=== PATIENT | female | born 1985 | race Caucasian/White ===

== ENCOUNTER 2021-04-06 10:27 | Emergency (ER) | payer BC, OTHER ==
[2021-04-06] MEDS ORDERED: Sodium Chloride 0.9% 1,000 ML IV ONE (10:36)
[2021-04-06] MEDS ORDERED: Ketorolac 30 MG/ML SDV IVPUSH ONE (10:36)
--- NOTE | 2021-04-06 10:36 | EDM.PDOC ---
ED HPI GENERAL MEDICAL PROBLEM - General Chief Complaint: Respiratory Problem Stated Complaint: SOB Time Seen by Provider: 04/06/21 10:28 Source of Information: Reports: Patient History Limitations: Reports: No Limitations - History of Present Illness INITIAL COMMENTS - FREE TEXT/NARRATIVE: HISTORY AND PHYSICAL: History of present illness: Patient is a 35-year-old female who presents to the emergency room with complaints of shortness of breath, subjective fever, cough and worsening body aches over the past 2 to 3 days. Patient started having symptoms on 03/30/2021, was diagnosed with COVID-19 on 04/01. She states her symptoms are progressively getting worse and she feels like it is "moving into my lungs". She has had mild nausea, headache and diarrhea. Patient denies any change in vision, syncope or near syncope. Denies any chest pain, back pain, abdominal pain, vomiting, constipation or dysuria. Has not noted any blood in urine or stool. No concern for . Patient has been eating and drinking appropriately. Review of systems: As per history of present illness and below otherwise all systems reviewed and negative. Past medical history: As per history of present illness and as reviewed below otherwise noncontributory. Surgical history: As per history of present illness and as reviewed below otherwise noncontributory. Social history: See social history for further information Family history: As per history of present illness and as reviewed below otherwise noncontributory. Physical exam: General: Well developed and well nourished . Alert and orientated x 3. Nontoxic in appearance and in no acute distress. Vital signs are stable and have been reviewed by me. Nursing notes were reviewed. HEENT: Atraumatic, normocephalic, pupils equal and reactive bilaterally, negative for conjunctival pallor or scleral icterus, mucous membranes dry, TMs normal bilaterally, throat clear, neck supple, nontender, trachea midline. No drooling or trismus noted. No meningeal signs. No hot potato voice noted. Lungs: Diminished to auscultation bilaterally. No wheezes, rales, or rhonchi. Chest nontender. Normal work of breathing, no accessory muscles used. Heart: S1S2, regular rate and rhythm without overt murmur, gallops, or rubs. No JVD. No peripheral edema Abdomen: Soft, nondistended, nontender. Normoactive bowel sounds. Negative for masses or costovertebral tenderness. Skin: Intact, warm, dry. No lesions or rashes noted. Hematologic: No petechiae or purpra. Mucosa appropriate color and normal nail bed color and refill. Extremities: Atraumatic, moves all extremities per self without difficulty or deficits, negative for cords or calf pain. Neurovascular unremarkable. Neuro: Awake, alert, oriented. Cranial nerves II through XII unremarkable. Cerebellum unremarkable. Motor and sensory unremarkable throughout. Exam nonfocal. Psychiatric: Mood and affect are appropriate. Normal thought process. Answering questions appropriately. Please note that the patient was seen and evaluated during the 2019 SARS-CoV-2 novel coronavirus pandemic period. Community viral transmission is ongoing at time of this encounter and the emergency department is operating under pandemic response procedures. Medical Decision Making: Patient is a 35-year-old female who presents to the emergency room with complaints of increased worsening of COVID-19 symptoms. She states over the past 2 days they have been significantly more difficult and she feels like it is "moving it into my lungs". She does have some concern of dehydration as she has had diarrhea. Her oral mucosa are dry and she does have diminished lung sounds. We will do basic lab work and give her some fluid replacement with Toradol. Declines wanting anything for nausea at this time. Vital signs are stable with a saturation of 92% on room air. Chest x-ray shows low lung volumes bilaterally expanded to the 78th posterior rib space. Given low lung volumes, cardiomediastinal silhouette is likely within normal limits. Vascular crowding likely secondary to low lung volumes. There are multifocal pulmonary opacities bilaterally with peribronchial thickening consistent with underlying diagnosis of COVID. No large effusion. No pneumothorax. Nursing staff had noticed that her oxygen would go to 89 to 90% on room air. They had put her on 2 L per nasal cannula and she had bumped up to 96 to 98%with supplementation. We did remove her from oxygen when deciding admission versus discharge to home, she would sat 90 to 94%. I did offer and admission, she would prefer to go home with home oxygen. [employer] did come and provide patient with oxygen supplies. She will be given the option for outpatient monoclonal antibody therapy. I have talked with the patient about today's findings, in addition to providing specific details for plan of care. Reassessment at the time of disposition demonstrates that the patient is in no acute distress. The patient is stable for discharge, counseling was provided and we discussed in great detail signs and symptoms that would prompt them to return to the Emergency Department. Medication, follow up and supportive care measures were reviewed and discussed. Voices understanding and is agreeable to plan of care. Denies any further questions or concerns at this time. Diagnostics: CBC, CMP, CXR Therapeutics: IV fluids, Toradol Prescription: Home oxygen, outpatient monoclonal antibody therapy Impression: COVID-19 Plan: 1. Your COVID-19 screening is positive. That means you do have the coronavirus and you are considered contagious. Your vital signs and oxygen saturation are well enough that you were able to monitor your symptoms at home. Continue to monitor for trouble breathing, new confusion or inability to arouse, bluish lips or face or any of the other symptoms we discussed -if this occurs please return to the emergency room immediately. 2. Please self quarantine until cleared by [facility]. Inform any persons that you have been in contact with since you started becoming symptomatic that you have tested positive; they should be made aware and take the appropriate steps as needed. 3. You can take NyQuil during the evening to help get a restful night sleep. May alternate Tylenol and ibuprofen as needed for pain and fever management. 4. The [facility] department will be calling you and following up with you. The [facility] COVID 19 Hotline phone number , They are open Sunday - Sunday 7am - 7pm. Follow up with your primary care provider for re-evaluation as directed. Definitive disposition and diagnosis as appropriate pending reevaluation and review of above. - Related Data Allergies Allergy/AdvReac Type Severity Reaction Status Date / Time No Known Allergies Allergy Verified 04/06/21 10:39 Home Meds: Home Meds Codeine/Promethazine [Phenergan with Codeine] 5 ml PO Q4HR PRN #118 ml 04/06/21 [Rx] Venlafaxine [Venlafaxine HCl ER] 225 mg PO DAILY 04/06/21 [History] ED ROS GENERAL - Review of Systems Review Of Systems: Comprehensive ROS is negative, except as noted in HPI. ED EXAM, GENERAL - Physical Exam Exam: See Below (See dictation) Course - Vital Signs Last Recorded V/S: Last Vital Signs Temp 96.5 F L 04/06/21 10:31 Pulse 102 H 04/06/21 11:35 Resp 17 04/06/21 11:35 BP 142/82 H 04/06/21 11:35 Pulse Ox 96 04/06/21 11:35 - Orders/Labs/Meds Labs: Laboratory Tests 04/06/21 04/06/21 04/06/21 Range/Units 10:51 10:51 11:19 WBC 4.92 (4.0-11.0) K/uL RBC 4.67 (4.30-5.90) M/uL Hgb 12.7 (12.0-16.0) g/dL Hct 38.6 (36.0-46.0) % MCV 82.7 (80.0-98.0) fL MCH 27.2 (27.0-32.0) pg MCHC 32.9 (31.0-37.0) g/dL RDW Std Deviation 41.6 (28.0-62.0) fl RDW Coeff of Juanjo 14 (11.0-15.0) % Plt Count 215 (150-400) K/uL MPV 10.70 (7.40-12.00) fL Neut % (Auto) 74.2 (48.0-80.0) % Lymph % (Auto) 21.1 (16.0-40.0) % [place] % (Auto) 4.3 (0.0-15.0) % Eos % (Auto) 0.2 (0.0-7.0) % Baso % (Auto) 0.2 (0.0-1.5) % Neut # (Auto) 3.7 (1.4-5.7) K/uL Lymph # (Auto) 1.0 (0.6-2.4) K/uL [place] # (Auto) 0.2 (0.0-0.8) K/uL Eos # (Auto) 0.0 (0.0-0.7) K/uL Baso # (Auto) 0.0 (0.0-0.1) K/uL Nucleated RBC % 0.0 /100WBC Nucleated RBCs # 0 K/uL Sodium 134 L (136-145) mmol/L Potassium 3.6 (3.5-5.1) mmol/L Chloride 97 L (98-107) mmol/L Carbon Dioxide 25.8 (21.0-32.0) mmol/L BUN 9 (7.0-18.0) mg/dL Creatinine 0.7 (0.6-1.0) mg/dL Est Cr Clr Drug Dosing 116.11 mL/min Estimated GFR (MDRD) > 60.0 ml/min Glucose 190 H (74-106) mg/dL Calcium 8.0 L (8.5-10.1) mg/dL Total Bilirubin 1.0 (0.2-1.0) mg/dL AST 43 H (15-37) IU/L ALT 78 H (14-63) IU/L Alkaline Phosphatase 70 (46-116) U/L Total Protein 8.0 (6.4-8.2) g/dL Albumin 3.3 L (3.4-5.0) g/dL Globulin 4.7 H (2.6-4.0) g/dL Albumin/Globulin Ratio 0.7 L (0.9-1.6) SARS-CoV-2 RNA ([place]) POSITIVE H (NEGATIVE) Meds: Medications Discontinued Medications Generic Name Dose Route Start Last Admin Trade Name Freq PRN Reason Stop Dose Admin Dexamethasone 6 mg 04/06/21 11:24 04/06/21 12:09 Dexamethasone 10 Mg/Ml Sdv IVPUSH 04/06/21 11:25 6 mg ONETIME ONE Administration Sodium Chloride 1,000 mls @ 999 mls/hr 04/06/21 10:36 04/06/21 11:02 Normal Saline IV 04/06/21 11:36 999 mls/hr STAT ONE Administration Ketorolac Tromethamine 30 mg 04/06/21 10:36 04/06/21 11:02 Ketorolac 30 Mg/Ml Sdv IVPUSH 04/06/21 10:37 30 mg ONETIME ONE Administration Departure - Departure Time of Disposition: 14:05 Disposition: Home, Self-Care 01 Clinical Impression: COVID-19 - Discharge Information Prescriptions: Codeine/Promethazine [Phenergan with Codeine] 5 ml PO Q4HR PRN #118 ml PRN Reason: Other Instructions: 10 Things You Can Do to Manage Your COVID-19 Symptoms at Home - [facility] (12/17/2020) Referrals: PCP,None [Primary Care Provider] - Forms: ED Department Discharge Additional Instructions: The following information is given to patients seen in the emergency department who are being discharged to home. This information is to outline your options for follow-up care. We provide all patients seen in our emergency department with a follow-up referral. The need for follow-up, as well as the timing and circumstances, are variable depending upon the specifics of your emergency department visit. If you don't have a primary care physician on staff, we will provide you with a referral. We always advise you to contact your personal physician following an emergency department visit to inform them of the circumstance of the visit and for follow-up with them and/or the need for any referrals to a consulting specialist. The emergency department will also refer you to a specialist when appropriate. This referral assures that you have the opportunity for follow-up care with a specialist. All of these measure are taken in an effort to provide you with optimal care, which includes your follow-up. Under all circumstances we always encourage you to contact your private physician who remains a resource for coordinating your care. When calling for follow-up care, please make the office aware that this follow-up is from your recent emergency room visit. If for any reason you are refused follow-up, please contact the [facility] Emergency Department at and asked to speak to the emergency department charge nurse. [facility] [address] [place] [id number] [id number] Thank you for choosing the [facility] emergency department in [place] for your medical needs today. It was a pleasure caring for you. Today you were seen in the emergency department for COVID 19 Your prescription was electronically sent to: [facility]. Your COVID-19 screening is positive. That means you do have the coronavirus and you are considered contagious. Your vital signs and oxygen saturation are well enough that you were able to monitor your symptoms at home. Continue to monitor for trouble breathing, new confusion or inability to arouse, bluish lips or face or any of the other symptoms we discussed -if this occurs please return to the emergency room immediately. 2. Please self quarantine until cleared by [facility]. Inform any persons that you have been in contact with since you started becoming symptomatic that you have tested positive; they should be made aware and take the appropriate steps as needed. 3. You can take NyQuil during the evening to help get a restful night sleep. May alternate Tylenol and ibuprofen as needed for pain and fever management. 4. The [facility] department will be calling you and following up with you. The [facility] Hotline phone number , They are open Sunday - Sunday 7am - 7pm. Follow up with your primary care provider for re-evaluation as directed. Sepsis Event Note (ED) - Focused Exam Vital Signs: Vital Signs Temp Pulse Resp BP Pulse Ox 04/06/21 11:35 102 H 17 142/82 H 96 04/06/21 10:31 96.5 F L 120 H 20 153/79 H 93 L
[2021-04-06] MEDS ORDERED: Dexamethasone 10 MG/ML SDV IVPUSH ONE (11:24)
[2021-04-06 11:39] LABS: BLOOD UREA NITROGEN,BUN 9 mg/dL (7.0-18.0); CARBON DIOXIDE,CO2 25.8 mmol/L (21.0-32.0); CHLORIDE,CL 97 mmol/L (98-107); GLUCOSE RANDOM 190 mg/dL (74-106); POTASSIUM,K 3.6 mmol/L (3.5-5.1); SODIUM,NA 134 mmol/L (136-145)
--- NOTE | 2021-04-06 11:39 | CR ---
INDICATION: COVID, shortness of breath COMPARISON: None FINDINGS AND IMPRESSION: There are low lung volumes bilaterally expanded to the 78th posterior rib space. Given low lung volumes, cardiomediastinal silhouette is likely within normal limits. Vascular crowding likely secondary to low lung volumes. There are multifocal pulmonary opacities bilaterally with peribronchial thickening consistent with underlying diagnosis of COVID. No large effusion. No pneumothorax. Dictated by Elysia Torres MD @ 04/06/2021 11:38:38 AM (Electronically Signed)
== END 2021-04-06 14:27 | disposition home or self-care (01) ==
LOC: MW.ED 10:27
DX: U07.1 COVID-19 (principal)
CPT/HCPCS: 36415; 71045; 80053; 85025; 87635; 96374; 96375; 99285; J1100; J1885; J7030; U0002

== ENCOUNTER 2022-07-20 04:24 | Emergency (ER) | payer BC ==
[2022-07-20] MEDS ORDERED: Ketorolac 30 MG/ML SDV IM STA (04:28)
[2022-07-20] MEDS ORDERED: Ondansetron 4 MG/2 ML SDV IVPUSH ONE (04:39)
[2022-07-20] MEDS ORDERED: Lactated Ringers 1,000 ML IV STA (04:39)
[2022-07-20] MEDS ORDERED: Ketorolac 30 MG/ML SDV IVPUSH ONE (04:48)
[2022-07-20 05:18] LABS: CORONAVIRUS COVID-19 NAA POSITIVE (NEGATIVE); INFLUENZA A NAA NEGATIVE (NEGATIVE); INFLUENZA B NAA NEGATIVE (NEGATIVE); RESPIRATORY SYNCYTIAL VIR NAA NEGATIVE (NEGATIVE)
== END 2022-07-20 06:09 | disposition home or self-care (01) ==
LOC: MW.ED 04:24
DX: U07.1 COVID-19 (principal)
CPT/HCPCS: 0241U; 96361; 96374; 96375; 99283; J1885; J2405; J7120

== ENCOUNTER 2025-02-09 18:24 | Emergency (ER) | payer BC ==
[2025-02-09] MEDS ORDERED: Diphtheria,Pertussis(Acell),Tetanus Vaccine 0.5 ML Syringe IM ONE (18:26)
== END 2025-02-09 19:14 | disposition left against medical advice (07) ==
LOC: MW.ED 18:24
DX: Z53.21 Procedure and treatment not carried out due to patient leaving prior to being seen by health care provider (principal)